=== PATIENT | female | born 1960 | race Asian ===

== ENCOUNTER 2020-12-10 17:16 | Inpatient (IN) | payer BC, SELFPAY ==
[~2020-12-10] VITALS: Ht 154.9 cm; Wt 68.5 kg
--- NOTE | 2020-12-10 17:16 | NUR ---
Placed in room 01 . Placed on cardiac tech, blood pressure machine and pulse oximeter. To gown for exam. Side rails up.
--- NOTE | 2020-12-10 17:17 | NUR ---
Patient BIB from by [facility] [employer] for possible overdose. Per Paramedics, 911 was call to home for wellness check. No response at front door Police force entry to find patient laying on floor with empty bottle of lisinopril and ativan at side. Patient only responded to painful stimuli. Patient arrived with 20 G to left hand and MAMMOGRAPHY TECHNICIAN in right nostril ciaran NRB at 15L. Patient given Epinephrine x 1 for blood pressure of 86/60 and narcan x1 with no effect. Patient is non verbal, GCS 3. MD notified. Prepared for intubation.
--- NOTE | 2020-12-10 17:23 | NUR ---
called [phone] for nephew, Venu Cooper. Spoke to nimichael Contreras reports ativan 0.5 mg q daily prn for anxiety refilled on 12/08/20 Quantity 30 is empty
[2020-12-10] MEDS ORDERED: NOREPINEPHRINE 4 MG/4 ML VIAL IV ONE (17:31)
--- NOTE | 2020-12-10 17:31 | NUR ---
Patient not known to be of DNR status. Patient medicated with 50 mg of Rocuronium for sedation prior to placement of ET tube. Respiratory therapy at bedside prior to placement. Size 7.5 ET tube placed by DR. Billy Cuff inflated with 10 cc air. Auscultation of breath sounds over bilateral chest wall. ET tube secured with holster. O2 sats 100 pulse ox. PCXR ordered to check tube placement.
--- NOTE | 2020-12-10 17:35 | NUR ---
# 16 FR NG tube placed to right nare. Placement checked by auscultation of instilled air into stomach and aspiration of gastric contents. Tubing taped in place to prevent dislodging. Patient tolerated well
--- NOTE | 2020-12-10 17:40 | NUR ---
# 16 FR Campbell catheter with use of sterile technique. Immediate return of 200 cc clear urine noted. Bedside drainage bag placed below level of bladder. Urine sample collected and sent to lab. Pt tolerated procedure well
--- NOTE | 2020-12-10 17:48 | NUR ---
Called Poison Control at [phone] and spoke with MIGUEL. Per recommendations: MAY CAUSE RESPIRATORY DEPRESSION, HYPOTENSION MAY CAUSE QTC PROLONGATION IF GREATER THAN 500 -AUTOMOBILE SALESMAN -EKG -CHECK ELECTROLYTES -SALICYLATES -UDS -ACETAMINOPHEN Dr. PRICE notified. Will continue to monitor patient.
--- NOTE | 2020-12-10 17:53 | NUR ---
EKG performed at BS by ELIAN Salamanca. Physician given copy of EKG for review.
[2020-12-10 17:56] VITALS: BP_SYST 105
[2020-12-10] MEDS ORDERED: ROCURONIUM BROMIDE 10 MG/ML (ZEMURON) ONE (18:00)
[2020-12-10] MEDS ORDERED: MIDAZOLAM IN NACL,ISO-OSMOT/PF 100 ML IV PRN (18:00)
[2020-12-10] MEDS ORDERED: NOREPINEPHRINE BITARTRATE 4 MG in NS 246 ML IV ONE ×2 (18:00→18:15)
[2020-12-10] MEDS ORDERED: ACTIVATED CHARCOAL 50 GM ORAL.SUSP PO ONE (18:00)
--- NOTE | 2020-12-10 18:00 | NUR ---
unable to do Suicide Severity Risk Assessment. Unable to ask patient questions at this time. Per family, Patient has never had any Suicide attempts in the past. History of depression on Latuda 20 mg for 3 months and recently started prozac 3 weeks ago. Family reports no triggers but reports loss of father in law 1 1/2 months ago.
--- NOTE | 2020-12-10 18:03 | NUR ---
levophed 0.1 mg initated at this time BP 96/63 hr 89 to Titrate to a goal MAP of 90.
[2020-12-10 18:15] LABS: BASOPHILS % (AUTO) 0.2 % (0.0-2.0); EOSINOPHILS % (AUTO) 0.3 % (0.0-4.0); HEMATOCRIT 33.5 % (36-48); HEMOGLOBIN 11.2 g/dL (12.0-16.0); LYMPHOCYTES # (AUTO) 1.6 K/uL (1.0-5.5); LYMPHOCYTES % (AUTO) 16.5 % (20.5-51.5); MEAN CORPUSCULAR HEMOGLOBIN 30 pg (27-31); MEAN CORPUSCULAR HGB CONC 34 % (32-36); MEAN CORPUSCULAR VOLUME 90 fL (79.0-98.0); MONOCYTES # (AUTO) 0.4 K/uL (0.0-1.0); MONOCYTES % (AUTO) 4.4 % (1.7-9.3); NEUTROPHILS # (AUTO) 7.8 K/uL (1.8-7.7); NEUTROPHILS % (AUTO) 78.6 % (40.0-70.0); PLATELET COUNT (AUTO) 219 K/uL (130-430); RED BLOOD CELL COUNT(AUTO) 3.72 MIL/uL (4.2-6.2); RED CELL DISTRIBUTION WIDTH 13.6 % (9.0-15.0)
[2020-12-10 18:28] LABS: BILIRUBIN,URINE NEGATIVE (NEGATIVE); BLOOD, URINE 1+ (NEGATIVE); CLARITY/URINE CLEAR (CLEAR); COLOR,URINE YELLOW (YELLOW); GLUCOSE,URINE NEGATIVE (NEGATIVE); KETONES,URINE TRACE (NEGATIVE); LEUKOCYTE ESTERASE ,URINE NEGATIVE (NEGATIVE); NITRITE, URINE NEGATIVE (NEGATIVE); PROTEIN URINE NEGATIVE (NEGATIVE); UROBILINOGEN,URINE 0.2 (0.2-1.0)
--- NOTE | 2020-12-10 18:46 | NUR ---
Versed drip started at 1 mg/hr Titrate to Rass of -3.
--- NOTE | 2020-12-10 18:53 | NUR ---
aPatient will be admitted to care of Dr. Pak. Admitted to ICU unit. ICU hold at this time. Belongings list completed. Complete and up to date summary report printed. SBAR report to be given at bedside with opportunity for questions.
[2020-12-10 18:54] LABS: BARBITURATE, URINE NEGATIVE (NEG <=200); BENZODIAZEPINE, URINE POSITIVE (NEG <=150); CANNABINOID, URINE NEGATIVE (NEG <=50); COCAINE, URINE NEGATIVE (NEG <=150); METHAMPHETAMINES SCREEN,URINE NEGATIVE (NEG <=500); OPIATE, URINE NEGATIVE (NEG <=100); PHENCYCLIDINE SCREEN,URINE NEGATIVE (NEG <=25); UR TRICYCLIC ANTIDEPRESSANTS NEGATIVE (NEG <=300); URINE AMPHETAMINE NEGATIVE (NEG <=500); URINE METHADONE NEGATIVE (NEG <=200); URINE OXYCODONE SCREEN NEGATIVE (NEG <=100); URINE PROPOXYPHENE SCREEN NEGATIVE (NEG <=300)
[2020-12-10] MEDS ORDERED: ROCURONIUM BROMIDE 10 MG/ML (ZEMURON) IVP ONE (19:00)
[2020-12-10] MEDS ORDERED: NACL 0.9% 1,000 ML IV ONE (19:00)
[2020-12-10] MEDS ORDERED: ATOR10TA68 PO (19:11)
[2020-12-10] MEDS ORDERED: PRO10 PO (19:11)
[2020-12-10] MEDS ORDERED: ONDANSETRON HCL 4 MG/2 ML VIAL IVP ONE (19:15)
[2020-12-10] MEDS ORDERED: ESCI20TA PO (19:15)
[2020-12-10] MEDS ORDERED: fentaNYL CITRATE/PF 100 MCG/2 ML AMP IVP ONE ×3 (19:15→20:30)
[2020-12-10] MEDS ORDERED: LORA-258 PO (19:16)
--- NOTE | 2020-12-10 19:20 | NUR ---
Patient awake and attempting to pull at tube. Patient had one episode of emesis and suctioned at be 50 ml of activated charcoal. order for zofran 4 mg ivp received and given. Versed Titrated to 5 mg/hr per md.
[2020-12-10 19:21] LABS: ALANINE AMINOTRANSFERASE 47 U/L (12-78); ALBUMIN 3.7 g/dL (3.4-4.8); ALCOHOL, BLOOD 16 mg/dL (<10); ASPARTATE AMINOTRANSFERASE 34 U/L (10-37); CALCIUM 7.8 mg/dL (8.4-11.0); CHLORIDE 103 mmol/L (98-107); CREATININE 0.72 mg/dL (0.55-1.30); GLUCOSE 132 mg/dL (70-99); SODIUM SERUM 142 mmol/L (136-145); TOTAL BILIRUBIN 0.8 mg/dL (0.0-1.0); UREA NITROGEN, BLOOD 9 mg/dL (8-21)
--- NOTE | 2020-12-10 19:24 | NUR ---
Patient eyes are open and trying to grab at tube. MD notified. Md ordered placed in CPOE. Fentanyl 100 mcg given ivp given
[2020-12-10 19:31] LABS: GFR AFRICAN AMERICAN 106 mL/min (>90)
[2020-12-10 19:32] LABS: POTASSIUM 2.7 mmol/L (3.5-5.1)
[2020-12-10 19:33] LABS: ACETAMINOPHEN < 1 ug/mL (1-30); ANION GAP 15 (5-15)
--- NOTE | 2020-12-10 19:36 | NUR ---
EKG performed at BS by ELIAN Salamanca. Physician given copy of EKG for review.
[2020-12-10] MEDS ORDERED: DEXMEDETOMIDINE HCL 200 MCG in NS 48 ML IV PRN (19:45)
--- NOTE | 2020-12-10 19:49 | NUR ---
Patient is restless and moving hands and moving head side to side. MD order additional Fentanyl 100 mcg ordered and given.
--- NOTE | 2020-12-10 19:50 | NUR ---
Versed titrated to 10 mg/hr per MD order. Will continue to monitor patient.
[2020-12-10] MEDS ORDERED: CIT IV PRN (20:00)
[2020-12-10] MEDS ORDERED: ONDANSETRON HCL 4 MG/2 ML VIAL IVP PRN (20:00)
[2020-12-10] MEDS ORDERED: D5/0.45 NS 1,000 ML IV SCH (20:00)
[2020-12-10] MEDS ORDERED: FENTANYL IV PRN (20:00)
[2020-12-10] MEDS ORDERED: NS IV PRN (20:00)
--- NOTE | 2020-12-10 20:07 | NUR ---
Dr. Billy speaking to Dr. Pino regarding sedation orders for patient
[2020-12-10] MEDS ORDERED: LURA20TA PO (20:19)
[2020-12-10 20:21] LABS: BACTERIA,URINE FEW /HPF (None Seen); MUCUS,URINE None Seen /LPF (None Seen); RBC,URINE 0-3 /HPF (0-3); WBC,URINE 0-3 /HPF (0-3)
--- NOTE | 2020-12-10 20:22 | NUR ---
titrated Levophed 0.39 mcg/min BP 110/71
--- NOTE | 2020-12-10 21:00 | NUR ---
Medication reconciliation completed with information provided by patient's medication bottles. Any prior medication reconciliation on file was reviewed and corrected.
--- NOTE | 2020-12-10 21:20 | NUR ---
at bedside states she is full code.
--- NOTE | 2020-12-10 22:06 | NUR ---
Doron from poison control updated on patient status. Recommended replacing potassium and giving Magnesium 2 gm for prolonged QTC. Md notified
[2020-12-10] MEDS ORDERED: MAGNESIUM SULFATE 50 ML IV ONE ×2 (22:15→22:28)
[2020-12-10] MEDS ORDERED: KCL 40 mEq in 100 mL (PREMIX) 40 MEQ, LIDOCAINE JECT 2% PF 100 MG 75 MG in NS 150 ML IV ONE (22:15)
[2020-12-10] MEDS ORDERED: KCL 20 mEq in 100 mL (PREMIX) 200 ML IV ONE (22:26)
[2020-12-10] MEDS ORDERED: KCL 20 mEq in 100 mL (PREMIX) 100 ML IV ONE (22:30)
--- NOTE | 2020-12-10 22:30 | NUR ---
# 20 gauge angiocath placed to RIGHT hand. Use of asceptic technique. Opsite placed over site. Blood return noted. Flushed with 10 cc of normal saline. No evidence of infiltration noted. Patient tolerated well.
--- NOTE | 2020-12-10 22:30 | NUR ---
# 20 gauge angiocath placed to RIGHT WRIST. Use of asceptic technique. Opsite placed over site. Blood return noted. Flushed with 10 cc of normal saline. No evidence of infiltration noted. Patient tolerated well.
[2020-12-10] MEDS: ASPIRIN 600 MG/SUPP.RECT RC SCH (23:01)
--- NOTE | 2020-12-10 23:33 | NUR ---
Patient resting quietly. No acute distress noted. Vital signs within normal range.
[2020-12-11] VITALS (22 sets, daily range): BP systolic 105–143
[2020-12-11] MEDS ORDERED: PIPERACILLIN/TAZOBACTAM 3.375 GM/VIAL (ZOSYN) IV ONE (00:07)
--- NOTE | 2020-12-11 00:33 | NUR ---
Patient resting quietly. No acute distress noted. Vital signs within normal range.
[2020-12-11] MEDS: PIPERACILLIN/TAZO 3.375/DEX-IS 50 ML IV SCH ×5 (00:47→18:41)
[2020-12-11] MEDS ORDERED: fentaNYL CITRATE/PF 100 MCG/2 ML AMP IVP ONE (01:00)
--- NOTE | 2020-12-11 01:08 | NUR ---
Levophed Maxed at 1ml/hr.
--- NOTE | 2020-12-11 01:39 | NUR ---
emptied 1200 ml of clear yellow urine from urine collection bag.
[2020-12-11] MEDS ORDERED: NACL 0.9% 1,000 ML IV ONE (01:45)
[2020-12-11] MEDS: NACL 0.9% 1,000 ML IV SCH ×7 (02:16→21:36)
[2020-12-11] MEDS ORDERED: NOREPINEPHRINE BITARTRATE 4 MG in D5W 246 ML IV PRN (03:30)
[2020-12-11] MEDS ORDERED: MIDAZOLAM IN NACL,ISO-OSMOT/PF 100 ML IV SCH ×2 (03:30→12:15)
[2020-12-11] MEDS ORDERED: MIDAZOLAM IN NACL,ISO-OSMOT/PF 100 ML IV ONE ×2 (03:37→12:14)
[2020-12-11] MEDS ORDERED: fentaNYL CITRATE/PF 100 MCG/2 ML AMP ONE (03:50)
--- NOTE | 2020-12-11 04:08 | NUR ---
Patient transported to radiology via gurney, accompanied by RN, Tech, and Respiratory therapist.
--- NOTE | 2020-12-11 04:34 | NUR ---
Returned from radiology. Patient placed in ICU hospital bed/rney. Linens clean and changed. Patient IV medications infusing at prescribed rate. No signs of infiltration. Patient VSS, breathing even and unlabored, no signs of acute distress noted. Respiratory placed patient on ventilator. O2 saturation at 99%. Patient placed on quality assurance monitor body. Will continue to monitor.
--- NOTE | 2020-12-11 04:36 | NUR ---
Mepilex placed on patients saccral area, skin is intact. Pillow placed underneath heels to relieve pressure off bony prominences, skin is intact. Campbell catheter placed below patients bladder.
--- NOTE | 2020-12-11 04:42 | NUR ---
Campbell Catheter bag emptied, total urine output 500mL of clear yellow urine.
[2020-12-11 05:05] LABS: BASOPHILS % (AUTO) 0.2 % (0.0-2.0); EOSINOPHILS % (AUTO) 0.3 % (0.0-4.0); HEMATOCRIT 32.2 % (36-48); HEMOGLOBIN 10.7 g/dL (12.0-16.0); LYMPHOCYTES # (AUTO) 2.1 K/uL (1.0-5.5); LYMPHOCYTES % (AUTO) 17.3 % (20.5-51.5); MEAN CORPUSCULAR HEMOGLOBIN 30 pg (27-31); MEAN CORPUSCULAR HGB CONC 33 % (32-36); MEAN CORPUSCULAR VOLUME 91 fL (79.0-98.0); MONOCYTES # (AUTO) 0.8 K/uL (0.0-1.0); MONOCYTES % (AUTO) 6.2 % (1.7-9.3); NEUTROPHILS # (AUTO) 9.2 K/uL (1.8-7.7); PLATELET COUNT (AUTO) 209 K/uL (130-430); RED BLOOD CELL COUNT(AUTO) 3.55 MIL/uL (4.2-6.2); RED CELL DISTRIBUTION WIDTH 13.5 % (9.0-15.0); WHITE BLOOD COUNT (AUTO) 12.1 K/uL (4.8-10.8)
[2020-12-11 05:21] LABS: CALCIUM 7.4 mg/dL (8.4-11.0); CREATININE 0.73 mg/dL (0.55-1.30); PHOSPHORUS 2.7 mg/dL (2.7-4.5)
--- NOTE | 2020-12-11 05:36 | NUR ---
Transfer to ICU via ACLS protocol. Licensed nurse and respiratory therapist present. IV present no signs or symptoms of infiltration.
--- NOTE | 2020-12-11 05:55 | NUR ---
Pt admitted to ICU bed 5. Transferred by RN and RT in bed following ACLS protocol. Pt intubated and on ventilator. NG tube in place and clamped. Levophed gtt infusing @ 0.72 mcg/hr, Versed gtt infusing @ 10 mg/hr. Campbell catheter in place and draining to gravity. Bedside report given by GEOSCIENCES ASSOCIATE PROFESSOR.
--- NOTE | 2020-12-11 06:34 | NUR ---
CONSULT CARDIO. CONSULTING MD: DR. Court ADKINS PERSON NOTIFIED: LAI DIALED: [phone] ORDERED BY: DR. Sterling ADKINS
--- NOTE | 2020-12-11 06:35 | NUR ---
CONSULT PSYCH. CONSULTING MD: DR. ADAIR PERSON NOTIFIED: STEPHEN DIALED: [phone] ORDERED BY: DR. Sterling ADKINS
--- NOTE | 2020-12-11 07:30 | NUR ---
CLOSING NOTE Endorsed SBAR report to oncoming RN for continuity of care.
[2020-12-11] MEDS: PANTOPRAZOLE SODIUM 40 MG/VIAL (PROTONIX) IVP SCH (07:57)
--- NOTE | 2020-12-11 08:00 | NUR ---
Levophed infusing at 0.72mcg/kg/min on pump and SBP 120s.Levophed infusing on a regular pump and changed to ICU pump.rate decreased to 0.12mcg/kg/min. will watch BP and make further adjustments as needed.
--- NOTE | 2020-12-11 08:28 | NUR ---
BP 122/75 HR 56 Levophed decreased to 0.3mcg/kg/min. will monitor
[2020-12-11] MEDS: ASPIRIN 600 MG/SUPP.RECT RC SCH (08:49)
--- NOTE | 2020-12-11 09:15 | NUR ---
BP 129/73 HR 60 levo off
--- NOTE | 2020-12-11 09:30 | NUR ---
talked to patient (Alex) on the phone.
--- NOTE | 2020-12-11 10:30 | NUR ---
started tube feeding Vital AF 1.2 @ 10cc
[2020-12-11] MEDS ORDERED: CALCIUM GLUCONATE 2 GM in NS 100 ML IV ONE (11:45)
[2020-12-11] MEDS ORDERED: MAGNESIUM SULFATE 50 ML IV ONE (11:45)
--- NOTE | 2020-12-11 12:32 | NUR ---
calcium gluconate barcode is not scanning. informed pharmacist ( kurt) stated will working on it.
--- NOTE | 2020-12-11 13:05 | NUR ---
talked to family on the phone
--- NOTE | 2020-12-11 14:02 | NUR ---
CONSULT ID CONSULTING MD: DR. HEADLEY PERSON NOTIFIED: STEPHEN DIALED: [phone] ORDERED BY: Sterling TY
[2020-12-11] MEDS ORDERED: DEXMEDETOMIDINE HCL 400 MCG in NS 96 ML IV PRN ×2 (17:45→18:00)
--- NOTE | 2020-12-11 18:28 | NUR ---
1800 CPAP 5 PS 10 .30 TRIAL. RN AWARE. Addendum: 12/11/20 at 1829 by Harmony Elizalde RT Amended: Links added.
--- NOTE | 2020-12-11 19:49 | NUR ---
ENDORSED PATIENT TO KITCHEN LEAD RN FOR CONTINUATION OF CARE.
--- NOTE | 2020-12-11 19:50 | NUR ---
ABG ABG results relayed to Dr Donaldson. Orders received. Have RT start weaning from vent.
--- NOTE | 2020-12-11 20:00 | NUR ---
ASSESSMENT Pt quite with eyes close. Pt orally intubated, CPAP settings, pt tolerating current vent settings. NGT present left nare with continuous feeding in progress. NGT placement checked by irrigating tube and auscultating placement. IV sites 20ga LAC, 20ga RAC, 20ga right wrist, 20ga right hand all patent no redness or swelling noted @ site. @ bedside.
--- NOTE | 2020-12-11 20:55 | NUR ---
DR JACKIE Donaldson called to receive an update on pt's condition on CPAP. Orders received to extubate and place pt on 2L NC.
--- NOTE | 2020-12-11 21:05 | NUR ---
PRECEDEX Precedex discontinued, pt now extubated.
--- NOTE | 2020-12-11 22:32 | NUR ---
PT EXTUBATED PLACED ON 2L N/C O2 SAT REMAINS AT 96 %
[2020-12-12] VITALS (10 sets, daily range): BP systolic 106–140
[2020-12-12] MEDS: PIPERACILLIN/TAZO 3.375/DEX-IS 50 ML IV SCH ×5 (00:17→23:37)
[2020-12-12] MEDS: NACL 0.9% 1,000 ML IV SCH ×2 (06:26→23:38)
--- NOTE | 2020-12-12 06:35 | NUR ---
Nutrition Update Jack Scale 14 noted. Pt admitted for Respiratory failure, Shock Diet: Vital AF 1.2 at 10cc, FWF 50cc Q4H via NGT BMI: 28.6 kg/m2 RD to follow per nutrition care standards.
[2020-12-12 06:42] LABS: BASOPHILS % (AUTO) 0.2 % (0.0-2.0); EOSINOPHILS # (AUTO) 0.1 K/uL (0.0-0.4); EOSINOPHILS % (AUTO) 1.4 % (0.0-4.0); HEMATOCRIT 31.7 % (36-48); HEMOGLOBIN 10.8 g/dL (12.0-16.0); LYMPHOCYTES # (AUTO) 1.8 K/uL (1.0-5.5); LYMPHOCYTES % (AUTO) 21.4 % (20.5-51.5); MEAN CORPUSCULAR HEMOGLOBIN 31 pg (27-31); MEAN CORPUSCULAR HGB CONC 34 % (32-36); MEAN CORPUSCULAR VOLUME 89 fL (79.0-98.0); MONOCYTES # (AUTO) 0.5 K/uL (0.0-1.0); MONOCYTES % (AUTO) 6.3 % (1.7-9.3); NEUTROPHILS % (AUTO) 70.7 % (40.0-70.0); PLATELET COUNT (AUTO) 200 K/uL (130-430); RED BLOOD CELL COUNT(AUTO) 3.54 MIL/uL (4.2-6.2); RED CELL DISTRIBUTION WIDTH 13.6 % (9.0-15.0); WHITE BLOOD COUNT (AUTO) 8.4 K/uL (4.8-10.8)
[2020-12-12 07:49] LABS: ALBUMIN 3.3 g/dL (3.4-4.8); CALCIUM 8.2 mg/dL (8.4-11.0); CREATININE 0.73 mg/dL (0.55-1.30); POTASSIUM 3.5 mmol/L (3.5-5.1); TOTAL BILIRUBIN 1.2 mg/dL (0.0-1.0)
--- NOTE | 2020-12-12 08:00 | NUR ---
[place]-SUICIDE SEVERITY RATING SCALE Pt denies harming self, and states "I don't know".
[2020-12-12 08:23] LABS: ERYTHROCYTE SEDIMENTATION RATE 31 MM/HR (0-20)
[2020-12-12] MEDS: PANTOPRAZOLE SODIUM 40 MG/VIAL (PROTONIX) IVP SCH (08:29)
[2020-12-12] MEDS: ASPIRIN 600 MG/SUPP.RECT RC SCH (08:46)
[2020-12-12 09:26] LABS: C-REACTIVE PROTEIN QUANT 3.9 mg/dL (0-0.5)
--- NOTE | 2020-12-12 09:32 | NUR ---
DR ADKINS OK to transfer to Telemetry per doctor Adkins.
--- NOTE | 2020-12-12 09:43 | NUR ---
Dietitian Recommendations *Recommend: swallow eval for diet advancement. *If pt will be kept on EN, RD rec to increase EN infusion rate to better meet estimated needs: Vital AF 1.2 at 55ml/hr (goal rate). Please see Nutritional Assessment for details. CUSTODIAL, RD
--- NOTE | 2020-12-12 10:45 | NUR ---
DR JACKIE Donaldson evaluating pt.
--- NOTE | 2020-12-12 10:53 | NUR ---
PAGED PAGED LUCAS FOR SWALLOW EVAL LEFT MESSAGE
--- NOTE | 2020-12-12 11:00 | NUR ---
POISON CONTROL Jennie from poison control inquiring about pt. Wanted up date on pts condition.
--- NOTE | 2020-12-12 11:05 | NUR ---
TRANSFER PT transferred to Telemetry 131 via bed. Transported with ACLS RNs. Report given to Danni PAZ. Pt transported with O2 @ 2L NC. Belongings with pt.
--- NOTE | 2020-12-12 11:15 | NUR ---
Transfer to [facility] Patient transferred to Tele. Patient in stable condition. On 2 L nasal canula and tolerating well with no signs of shortness of breath noted. Vital signs are stable. 4 IV sites, patent infusing fluids as ordered. Bed locked and in lowest position. Call light within reach. Direct observation, sitter at bedside. Will monitor.
[2020-12-12] MEDS: IPRATROPIUM/ALBUTEROL SULFATE 3 ML AMPUL.NEB (DUONEB) INH SCH ×2 (13:35→20:21)
--- NOTE | 2020-12-12 13:42 | NUR ---
Dr. Pak rounds Spoke with Dr. Pak on the floor. Ordered regular diet and remove NG tube. Noted and carried out.
--- NOTE | 2020-12-12 14:06 | NUR ---
REMOVED NG/ PT Removed NG tube. Physical therapy at bedside. Will monitor.
--- NOTE | 2020-12-12 15:25 | NUR ---
S.T. SWALLOW EVAL SWALLOW EVAL COMPLETED. PT PRESENTS W/ FUNCTIONAL OROPHARYNGEAL SWALLOW W/ NO S/S OF ASPIRATION. PT PREFERS SOFT FOODS. REC: MECH SOFT FINELY CHOPPED DIET. THIN LIQUIDS OK. NURSE SABRA NOTIFIED.
--- NOTE | 2020-12-12 17:34 | NUR ---
Temperature Patient's temperature 99.4F. Cooling measures applied. Will monitor. Addendum: 12/12/20 at 1752 by Ayaka Ortega RN Temperature now at 97.5 after cooling measures. Will monitor.
--- NOTE | 2020-12-12 18:39 | NUR ---
CLOSING NOTE Patient is alert and oriented x 3. On room air and tolerating well with no signs of shortness of breath noted. 3 IV sites, infusing fluids at 125 ml/hr. Other IV sites are patent, saline locked. Bed locked and in lowest position. Sitter present. Call light within reach. Will endorse to night nurse.
--- NOTE | 2020-12-12 19:45 | NUR ---
OPENING NOTES PATIENT AWAKE IN BED. BREATHING UNLABORED ON ROOM AIR. NO C/O PAIN. IVF INFUSING ORDERED. SITTER ASSISTED PATIENT WITH ORAL CARE. VISITING.
--- NOTE | 2020-12-12 21:30 | NUR ---
ROUNDS PATIENT RESTING IN BED. VITAL SIGNS STABLE. SITTER AT BEDSIDE.
--- NOTE | 2020-12-12 23:37 | NUR ---
ATB PATIENT DUE ANTIBIOTIC INFUSING. IV LINE INTACT AND PATENT.
--- NOTE | 2020-12-13 | NUR ---
02 SAT/MD ROUND PATIENT 02 SAT SUSTAINING 87-[address] Macho HEADLEY MAKING ROUNDS MADE AWARE. PATIENT 02 CHANGED TO OXYMIZER 5L NC. 02 SAT WENT UP TO 99%.
[2020-12-13] MEDS: IPRATROPIUM/ALBUTEROL SULFATE 3 ML AMPUL.NEB (DUONEB) INH SCH ×4 (01:09→19:40)
--- NOTE | 2020-12-13 02:27 | NUR ---
02 02 SAT SUSTAINING 97-99%. OXYMIZER DOWN TO 2L.
--- NOTE | 2020-12-13 04:28 | NUR ---
ROUNDS PATIENT RESTING IN BED. NO DISTRESS NOTED. IVF INFUSING. 02 SAT 97%. SITTER AT BEDSIDE.
[2020-12-13] MEDS: PIPERACILLIN/TAZO 3.375/DEX-IS 50 ML IV SCH ×4 (05:13→23:37)
[2020-12-13 05:14] VITALS: BP_SYST 138
--- NOTE | 2020-12-13 05:18 | NUR ---
ATB PATIENT DUE ANTIBIOTIC INFUSING. NO C/O PAIN. VITAL SIGNS STABLE.
[2020-12-13 06:23] LABS: CALCIUM 8.4 mg/dL (8.4-11.0); CREATININE 0.77 mg/dL (0.55-1.30); POTASSIUM 3.2 mmol/L (3.5-5.1)
[2020-12-13 06:28] LABS: BASOPHILS % (AUTO) 0.2 % (0.0-2.0); EOSINOPHILS # (AUTO) 0.2 K/uL (0.0-0.4); EOSINOPHILS % (AUTO) 2.5 % (0.0-4.0); HEMATOCRIT 29.8 % (36-48); HEMOGLOBIN 10.3 g/dL (12.0-16.0); LYMPHOCYTES # (AUTO) 2.5 K/uL (1.0-5.5); LYMPHOCYTES % (AUTO) 31.4 % (20.5-51.5); MEAN CORPUSCULAR HEMOGLOBIN 31 pg (27-31); MEAN CORPUSCULAR HGB CONC 35 % (32-36); MEAN CORPUSCULAR VOLUME 89 fL (79.0-98.0); MONOCYTES # (AUTO) 0.6 K/uL (0.0-1.0); MONOCYTES % (AUTO) 7.7 % (1.7-9.3); NEUTROPHILS # (AUTO) 4.6 K/uL (1.8-7.7); NEUTROPHILS % (AUTO) 58.2 % (40.0-70.0); PLATELET COUNT (AUTO) 192 K/uL (130-430); RED BLOOD CELL COUNT(AUTO) 3.35 MIL/uL (4.2-6.2); RED CELL DISTRIBUTION WIDTH 13.4 % (9.0-15.0)
--- NOTE | 2020-12-13 06:33 | NUR ---
CLOSING NOTES PATIENT NEEDS ATTENDED. IVF INFUSING WITH IV LINE INTACT AND PATENT. SITTER AT BEDSIDE.
--- NOTE | 2020-12-13 07:29 | NUR ---
OPENING NOTE Patient is alert and oriented x 3. On 2 L oximizer and tolerating well with no signs of shortness of breath noted. 3 IV sites, infusing fluids at 125 ml/hr. Other IV sites are patent, saline locked. Bed locked and in lowest position. Sitter present. Call light within reach. Will continue to monitor.
[2020-12-13 07:30] LABS: C-REACTIVE PROTEIN QUANT 6.3 mg/dL (0-0.5)
[2020-12-13 08:00] VITALS: BP_SYST 139
[2020-12-13] MEDS: NACL 0.9% 1,000 ML IV SCH ×2 (08:16→15:33)
[2020-12-13] MEDS: PANTOPRAZOLE SODIUM 40 MG/VIAL (PROTONIX) IVP SCH (08:17)
[2020-12-13] MEDS: ASPIRIN 600 MG/SUPP.RECT RC SCH (08:17)
[2020-12-13 09:43] LABS: ERYTHROCYTE SEDIMENTATION RATE 41 MM/HR (0-20)
[2020-12-13 11:05] VITALS: BP_SYST 119
--- NOTE | 2020-12-13 11:50 | NUR ---
RN Note Patient is resting in bed. Calm, with no distress noted. Patient denies any thoughts of harming herself, but stated she feels anxious. Sitter at bedside. Will monitor.
[2020-12-13 16:00] VITALS: BP_SYST 132
--- NOTE | 2020-12-13 18:36 | NUR ---
CLOSING NOTE Patient is alert and oriented x 3. On 2 L oximizer and tolerating well with no signs of shortness of breath noted. 3 IV sites, infusing fluids at 125 ml/hr. Other IV sites are patent, saline locked. Bed locked and in lowest position. Sitter present. Call light within reach. Will endorse to night nurse.
[2020-12-13] MEDS ORDERED: POTASSIUM CHLORIDE 20 MEQ TAB.PRT.SR PO ONE (19:30)
[2020-12-13 20:00] VITALS: BP_SYST 134
[2020-12-13] MEDS: NORMAL SALINE 5 ML DISP.SYRIN IVF SCH (21:10)
--- NOTE | 2020-12-13 22:00 | NUR ---
ROUNDING NOTES Patient resting in bed - no s/s pain or distress noted. IV sites patent - no s/s redness, infection, or infiltration. Campbell catheter secure and draining by gravity. Bed locked and in lowest position. Call light within reach.
[2020-12-13] MEDS: LORazepam 2 MG/ML VIAL IVP PRN (22:43)
[2020-12-14] VITALS: BP_SYST 133
[2020-12-14] MEDS: IPRATROPIUM/ALBUTEROL SULFATE 3 ML AMPUL.NEB (DUONEB) INH SCH ×4 (00:53→19:41)
[2020-12-14] MEDS: PIPERACILLIN/TAZO 3.375/DEX-IS 50 ML IV SCH ×4 (05:29→23:24)
[2020-12-14] MEDS: NORMAL SALINE 5 ML DISP.SYRIN IVF SCH ×3 (05:29→22:00)
--- NOTE | 2020-12-14 06:10 | NUR ---
PATIENT FEVER - DR. ADKINS CALLED Patient temperature 100.1 - Dr. Adkins called - orders Tylenol 650 PO Q4H PRN.
[2020-12-14] MEDS ORDERED: ACETAMINOPHEN 325 MG TABLET PO PRN (06:30)
[2020-12-14 06:38] LABS: BASOPHILS % (AUTO) 0.2 % (0.0-2.0); EOSINOPHILS # (AUTO) 0.2 K/uL (0.0-0.4); EOSINOPHILS % (AUTO) 2.5 % (0.0-4.0); HEMATOCRIT 31.5 % (36-48); HEMOGLOBIN 10.7 g/dL (12.0-16.0); LYMPHOCYTES # (AUTO) 2.2 K/uL (1.0-5.5); LYMPHOCYTES % (AUTO) 28.5 % (20.5-51.5); MEAN CORPUSCULAR HEMOGLOBIN 30 pg (27-31); MEAN CORPUSCULAR HGB CONC 34 % (32-36); MEAN CORPUSCULAR VOLUME 89 fL (79.0-98.0); MONOCYTES # (AUTO) 0.5 K/uL (0.0-1.0); MONOCYTES % (AUTO) 6.9 % (1.7-9.3); NEUTROPHILS # (AUTO) 4.7 K/uL (1.8-7.7); NEUTROPHILS % (AUTO) 61.9 % (40.0-70.0); PLATELET COUNT (AUTO) 192 K/uL (130-430); RED BLOOD CELL COUNT(AUTO) 3.52 MIL/uL (4.2-6.2); RED CELL DISTRIBUTION WIDTH 13.6 % (9.0-15.0); WHITE BLOOD COUNT (AUTO) 7.6 K/uL (4.8-10.8)
--- NOTE | 2020-12-14 06:58 | NUR ---
CLOSING NOTES/ PATIENT SHOWING NO SIGNS OF FEVER PER TEMPERATURE Patient resting in bed - no s/s pain or distress noted. IV sites patent - no s/s redness, infection, or infiltration. Campbell catheter secure and draining by gravity. Bed locked and in lowest position. Call light within reach. Patient temperature rechecked - patient temperature now 98.8 (previous temperature was checked 3 times as well and showed above 100.1 temperatures). Tylenol not administered.
[2020-12-14 07:25] LABS: ALBUMIN 3.1 g/dL (3.4-4.8); CALCIUM 8.4 mg/dL (8.4-11.0); CREATININE 0.68 mg/dL (0.55-1.30); PHOSPHORUS 3.7 mg/dL (2.7-4.5); POTASSIUM 3.4 mmol/L (3.5-5.1)
[2020-12-14 08:00] VITALS: BP_SYST 139
[2020-12-14] MEDS: ASPIRIN 600 MG/SUPP.RECT RC SCH ×2 (09:00→09:03)
[2020-12-14] MEDS: ASPIRIN 81 MG TAB.CHEW ONE ×2 (09:02→09:06)
[2020-12-14] MEDS: PANTOPRAZOLE SODIUM 40 MG/VIAL (PROTONIX) IVP SCH (09:03)
--- NOTE | 2020-12-14 09:47 | NUR ---
Patient verbalizing feeling of depression she doesn't know whats causing them,cannot sleep well at night , she is not sure what to do to her life.she cant remember what happen.
[2020-12-14 09:50] LABS: C-REACTIVE PROTEIN QUANT 3.4 mg/dL (0-0.5)
[2020-12-14 10:39] LABS: ERYTHROCYTE SEDIMENTATION RATE 39 MM/HR (0-20)
[2020-12-14 12:00] VITALS: BP_SYST 116
[2020-12-14 16:00] VITALS: BP_SYST 139
--- NOTE | 2020-12-14 18:55 | NUR ---
Note Pt was checked on q1' and PRN all shift for needs and care. Pt had sitter at bedside all shift. Pt has been stable. Pt was assessed and seen by Dr Oconnor at 1330. 5150 was signed at this time. Pt seems down and replies to questions slowly and with no expression. Pt did ambulate with PT in hallway with FWW - tolerated ambulation well. Call light within reach. No needs noted at this time.
[2020-12-14 19:28] VITALS: BP_SYST 140
[2020-12-14] MEDS ORDERED: POTASSIUM CHLORIDE 20 MEQ TAB.PRT.SR PO ONE (19:30)
--- NOTE | 2020-12-14 19:30 | NUR ---
CHANGE OF SHIFT; endorsed by day shift, pt. is 61/50, on direct observation , sitter at bedside. no acute distress.
--- NOTE | 2020-12-14 20:15 | NUR ---
NOTES: pt. awake, alert and oriented, verbally responsive, pt. verbalizing about her transferring to another facility, quite not happy about it, reassure that its not happening today and most likely over the weekend or even on thursday. VS checked by BILLING ASSISTANT. IV site on rt. arm ( 3 IV sites) tko infusing. west cath to osd. on fall risk precaution.
--- NOTE | 2020-12-14 22:00 | NUR ---
NOTES: pt. visiting and talked to him about the plan of care.
[2020-12-14] MEDS: LORazepam 2 MG/ML VIAL IVP PRN (23:25)
--- NOTE | 2020-12-15 | NUR ---
NOTES: pt. quite restless and anxious, was given IV Ativan as ordered and antibiotic infusing. VS rechecked. for close observation.
[2020-12-15 00:09] VITALS: BP_SYST 139
[2020-12-15] MEDS: IPRATROPIUM/ALBUTEROL SULFATE 3 ML AMPUL.NEB (DUONEB) INH SCH ×4 (00:49→19:05)
--- NOTE | 2020-12-15 02:00 | NUR ---
NOTES: pt. sleeping comfortably. IV tko. condition observed.
--- NOTE | 2020-12-15 04:20 | NUR ---
NOTES: pt. checked and sleeping, on direct observation.
[2020-12-15] MEDS: PIPERACILLIN/TAZO 3.375/DEX-IS 50 ML IV SCH ×2 (05:16→11:33)
[2020-12-15] MEDS: NORMAL SALINE 5 ML DISP.SYRIN IVF SCH ×5 (05:17→22:56)
--- NOTE | 2020-12-15 05:28 | NUR ---
NOTES: pt. awakened for am blood draw. due IV antibiotic given.
--- NOTE | 2020-12-15 06:23 | NUR ---
CLOSING NOTES; pt. went back to sleep,no distress. IV site patent. remain on direct observation, hold. west cath intact. risk for fall. sitter at bedside.
[2020-12-15 06:44] LABS: BASOPHILS % (AUTO) 0.4 % (0.0-2.0); EOSINOPHILS # (AUTO) 0.2 K/uL (0.0-0.4); EOSINOPHILS % (AUTO) 2.9 % (0.0-4.0); HEMATOCRIT 33.5 % (36-48); HEMOGLOBIN 11.1 g/dL (12.0-16.0); LYMPHOCYTES # (AUTO) 1.8 K/uL (1.0-5.5); LYMPHOCYTES % (AUTO) 25.9 % (20.5-51.5); MEAN CORPUSCULAR HEMOGLOBIN 30 pg (27-31); MEAN CORPUSCULAR HGB CONC 33 % (32-36); MEAN CORPUSCULAR VOLUME 89 fL (79.0-98.0); MONOCYTES # (AUTO) 0.4 K/uL (0.0-1.0); MONOCYTES % (AUTO) 5.9 % (1.7-9.3); NEUTROPHILS # (AUTO) 4.5 K/uL (1.8-7.7); NEUTROPHILS % (AUTO) 64.9 % (40.0-70.0); PLATELET COUNT (AUTO) 204 K/uL (130-430); RED BLOOD CELL COUNT(AUTO) 3.76 MIL/uL (4.2-6.2); RED CELL DISTRIBUTION WIDTH 13.8 % (9.0-15.0)
[2020-12-15 06:53] LABS: CALCIUM 8.8 mg/dL (8.4-11.0); CREATININE 0.71 mg/dL (0.55-1.30); POTASSIUM 3.8 mmol/L (3.5-5.1)
[2020-12-15 07:43] LABS: C-REACTIVE PROTEIN QUANT 1.9 mg/dL (0-0.5)
[2020-12-15 08:00] VITALS: BP_SYST 132
[2020-12-15] MEDS: PANTOPRAZOLE SODIUM 40 MG/VIAL (PROTONIX) IVP SCH (09:25)
[2020-12-15] MEDS: ASPIRIN 81 MG TAB.CHEW PO SCH (09:26)
[2020-12-15 10:22] LABS: ERYTHROCYTE SEDIMENTATION RATE 50 MM/HR (0-20)
[2020-12-15] MEDS ORDERED: levoFLOXacin 500 MG TABLET PO ONE (12:15)
[2020-12-15 12:19] VITALS: BP_SYST 118
--- NOTE | 2020-12-15 14:30 | NUR ---
Note Campbell catheter dc'd and pt ambulated to restroom to void
[2020-12-15 16:00] VITALS: BP_SYST 107
--- NOTE | 2020-12-15 16:20 | NUR ---
Note Pt's on the floor to pt's bedside to visit pt at this time. Pt stable. Pt ambulated with staff around the hallway about 5-6 times with FWW with steady gait. No needs noted. Pt has had a sitter at bedside all shift.
--- NOTE | 2020-12-15 17:50 | NUR ---
Dietitian Recommendations *Recommend mechanical soft, finely chopped diet. * Encourage increase PO intake. LP, RD Please refer to Nutrition F/U for details.
--- NOTE | 2020-12-15 17:50 | NUR ---
Nutrition F/U Admitting Diagnosis Respiratory failure, Shock Medical History Comment: Pt w/: Acute Respiratory failure S/P intubation, Ventilator dependent, Intentional drug overdose, Hypotension, Hyperlipidemia, Depression, Anemia, Hypokalemia, Hyperglycemia, Hypocalcemia, Elevated troponin level, Possible left lower lobe pneumonia, Sepsis per MD notes. PMH: Hyperlipidemia, Depression. SARS-CoV-2 Ag Rapid 12/10 Negative Subjective Information Per MD note: pt on 5150 hold; ok to be discharged to [facility] facility. Pt had swallow eval on 12/12: pt presents w/ functional oropharyngeal swallow w/ no s/s of aspiration; pt prefers soft foods; rec mech soft finely chopped diet, thin liquids ok. Pt was seen bedside by sports intern and RD reviewed findings. Sitter was present as pt is on 5150 hold. Pt is no longer on EN, diet advanced to mechanical soft 3 days ago on 12/12. Pt reports no N/V/D/C; had BM today 12/15 x 1; pt is able to feed herself; pt reports good appetite; does not like Ensure Enlive. Pt encouraged to continue to increase PO intake. Pt to be discharged today or tomorrow per pts sitter. Per EMR review: 71% PO intake x 7 meals on mechanical soft diet; active bowel sounds. Pertinent Medications protonix IV, Zofran, Ativan Inj Pertinent Labs Na 141WNL, K 3.8WNL, BG 108H, BUN 10WNL, Cre 0.73WNL. Height 51 Weight 151#/68.5kg (12/12--stable) Body Mass Index 28.53 kg/m2 %IBW 144 Star/Adjusted Body Weight 105#/ 48kg; Adj IBW: 116#/53kg Weight Status Overweight Usual Diet At Home regular diet per EMR Skin Integrity Comment: Jack scale: 19. no skin issues/edema documented. Current % PO Fair (50-74%) Estimated Energy Expenditure (kcals/day) 1971-1597 Kcal/day (30-35 kcal/kg Adj IBW for sepsis) Estimated Protein Required (g/day) 79-106gm/day (1.5-2gm/kg Adj IBW for sepsis) Estimated Fluid Required (l/day) 1.6-1.9 L/day (1ml/calorie for maintenance) Problem/Etiology/Signs/Symptoms Predicted suboptimal protein-calorie intake r/t pathophysiological factors AEB S/P extubation, EN support meets <25% of estimated calorie and protein needs. (*resolved) Altered nutrition related labs r/t medical condition AEB elevated BG, no history of DM. (*ongoing) Expected Outcomes/Goals Monitor appetite and PO intake w/ goal of pt meeting more than 75% of estimated nutritional needs, labs trending WNL, normal GI function, skin integrity/wt maintenance. Dietitian Recommendations *Recommend mechanical soft, finely chopped diet. * Encourage increase PO intake. Follow Up High Risk: F/U in 2-3 days
--- NOTE | 2020-12-15 18:55 | NUR ---
Note Pt has had sitter at bedside all shift. Pt was checked on q1' and PRN all shift for needs and care. Pt's bed in low position all shift. Pt has been using restroom to void all shift since Campbell catheter was dc'd. IV in RCA intact and patent. Call light within reach. No needs noted at this time.
--- NOTE | 2020-12-15 20:37 | NUR ---
Patient is awake alert D/O @ the bedside for SAFETY skin dry warm chest movement symmetrical 02 SAT 97 % on ROOM AIR assist as needed .
--- NOTE | 2020-12-15 20:38 | NUR ---
FAMILY of Patient is @ the bedside .
[2020-12-15 20:39] VITALS: BP_SYST 129
[2020-12-15] MEDS: LORazepam 2 MG/ML VIAL IVP PRN (22:57)
[2020-12-16 00:03] VITALS: BP_SYST 127
[2020-12-16] MEDS: IPRATROPIUM/ALBUTEROL SULFATE 3 ML AMPUL.NEB (DUONEB) INH SCH ×3 (01:00→13:00)
--- NOTE | 2020-12-16 02:39 | NUR ---
Lorazepam 1 mg IVP administer for anxiety & helpful .
--- NOTE | 2020-12-16 02:40 | NUR ---
Sitter D/O 2 THE Bedside patient Resting chest movement symmetrical also unlabored . Addendum: 12/16/20 at 0336 by Lion Lin RN @ the bedside , patient has D/O sitter for safety .
[2020-12-16] MEDS: NORMAL SALINE 5 ML DISP.SYRIN IVF SCH ×4 (06:00→15:21)
--- NOTE | 2020-12-16 06:30 | NUR ---
Patient Resting verbally Responsive D/O @ the bedside chest movement is symmetrical unlabored .
[2020-12-16 06:38] LABS: BASOPHILS % (AUTO) 0.3 % (0.0-2.0); EOSINOPHILS # (AUTO) 0.1 K/uL (0.0-0.4); EOSINOPHILS % (AUTO) 2.1 % (0.0-4.0); HEMATOCRIT 32.3 % (36-48); HEMOGLOBIN 11.1 g/dL (12.0-16.0); LYMPHOCYTES # (AUTO) 2.1 K/uL (1.0-5.5); LYMPHOCYTES % (AUTO) 29.9 % (20.5-51.5); MEAN CORPUSCULAR HEMOGLOBIN 30 pg (27-31); MEAN CORPUSCULAR HGB CONC 34 % (32-36); MEAN CORPUSCULAR VOLUME 88 fL (79.0-98.0); MONOCYTES # (AUTO) 0.5 K/uL (0.0-1.0); MONOCYTES % (AUTO) 7.2 % (1.7-9.3); NEUTROPHILS # (AUTO) 4.2 K/uL (1.8-7.7); NEUTROPHILS % (AUTO) 60.5 % (40.0-70.0); PLATELET COUNT (AUTO) 205 K/uL (130-430); RED BLOOD CELL COUNT(AUTO) 3.66 MIL/uL (4.2-6.2); RED CELL DISTRIBUTION WIDTH 13.6 % (9.0-15.0); WHITE BLOOD COUNT (AUTO) 6.9 K/uL (4.8-10.8)
[2020-12-16 06:40] LABS: C-REACTIVE PROTEIN QUANT 0.9 mg/dL (0-0.5); CALCIUM 8.8 mg/dL (8.4-11.0); CREATININE 0.68 mg/dL (0.55-1.30); POTASSIUM 3.4 mmol/L (3.5-5.1)
[2020-12-16 08:00] VITALS: BP_SYST 118
--- NOTE | 2020-12-16 08:00 | NUR ---
OPENING NOTES AWAKE, ALERT AND ORIENTED. NO SHORTNESS OF BREATH ON ROOM AIR. DENIES ANY PAIN. DENIES ANY THOUGHTS OF HARMING SELF OR OTHERS AT THIS TIME. IV ON RIGHT ARM INTACT. SAFETY CHECKS IN PLACE. SITTER AT BEDSIDE. WILL MONITOR.
[2020-12-16] MEDS: ASPIRIN 81 MG TAB.CHEW PO SCH (08:38)
[2020-12-16] MEDS: PANTOPRAZOLE SODIUM 40 MG/VIAL (PROTONIX) IVP SCH (08:39)
[2020-12-16] MEDS ORDERED: levoFLOXacin 500 MG TABLET PO SCH (10:00)
--- NOTE | 2020-12-16 10:00 | NUR ---
ROUNDS PATIENT IS WALKING FREQUENTLY USING A WALKER ACCOMPANIED BY SITTER. NO COMPLAINS AT THIS TIME.
[2020-12-16 10:30] LABS: ERYTHROCYTE SEDIMENTATION RATE 43 MM/HR (0-20)
[2020-12-16] MEDS ORDERED: LEVO500T89 PO (10:59)
[2020-12-16] MEDS ORDERED: POTASSIUM CHLORIDE 20 MEQ TAB.PRT.SR PO ONE (11:00)
--- NOTE | 2020-12-16 11:05 | NUR ---
CM note: faxed referral package attn Alonzo/Demetrio sup. fax# , tel #[phone]. Addendum: 12/16/20 at 1255 by Seema Goldberg RN Per Alonzo, the pt is medically cleared for accepting. The transfer is pending insurance clearance. He will be calling nursing unit if had bed after 1630. Alonzo [phone] demetrio sup. -- DC package placed in [facility]. -- BRANDI Cintron made aware.
--- NOTE | 2020-12-16 11:30 | NUR ---
POTASSIUM REPLACEMENT PATIENT VERBALIZED UNDERSTANDING OF NEED TO TAKE ORAL K+ REPLACEMENTS. TOOK MEDS WELL.
[2020-12-16 12:18] VITALS: BP_SYST 112
--- NOTE | 2020-12-16 14:30 | NUR ---
ROUNDS NO THOUGHTS OF HARMING SELF OR OTHERS AT THIS TIME, ALTHOUGH VERBALIZING FRUSTRATIONS WITH FAMILY/DAUGHTER. WAITING TO BE TRANSFERRED TO A PSYCH FACILITY.
[2020-12-16 16:19] VITALS: BP_SYST 124
--- NOTE | 2020-12-16 17:01 | NUR ---
TERA, ALMOND PASTE MIXER OF [facility] NOTIFIED THAT PT IS GOING TO [facility] ([facility] [address] [place] [address] GOING TO [address], DR WU IS THE [employer] AND SOCIAL MEDIA MARKETER IS DR Renee ADKINS. [facility] TEL # [phone] WILL TILE MOLDER HAND AT [address].
[2020-12-16 18:41] VITALS: BP_SYST 135
--- NOTE | 2020-12-16 19:47 | NUR ---
TRANSFER PT Report given to Lincoln at [facility]. Transfer packet with Transfer Orders and Medication Reconciliation form given to EMT with report. Exit care provided. [facility] ID band removed, replaced with ID band with pt's name and . IV catheter removed, intact and dressing applied, no active bleeding. All belongings sent with patient. Patient left floor via gurney escorted by EMT in no distress.
--- NOTE | 2020-12-17 09:04 | NUR ---
PHYSICAL THERAPY CO-SIGN The Physical Therapy Progress Notes documented by Smokehouse Worker have been reviewed. Reviewed/Co-Signed by: Randal Nicole Documentation Done by: PONCHO PATIÑO PTA Addendum: 12/17/20 at 0904 by Randal Nicole PT Amended: Links added.
--- NOTE | 2020-12-19 08:44 | NUR ---
Disposition 02
== END 2020-12-16 19:45 | DRG 871 ==
LOC: SED 17:16 → SIC 18:51 → STU 12-12 14:33 → SMU 12-13 22:23
PROVIDERS: ADMIT Preventive Medicine Preventive Medicine/Occupational Environmental Medicine; ATTEND Preventive Medicine Preventive Medicine/Occupational Environmental Medicine
PROC: 0BH17EZ Insertion of Endotracheal Airway into Trachea, Via Natural or Artificial Opening (ICD-10-PCS; principal; 2020-12-10)
PROC: 5A1945Z Respiratory Ventilation, 24-96 Consecutive Hours (ICD-10-PCS; 2020-12-10)
DX: A41.9 Sepsis, unspecified organism (principal); J69.0 Pneumonitis due to inhalation of food and vomit; J96.21 Acute and chronic respiratory failure with hypoxia; I21.A1 Myocardial infarction type 2; F33.2 Major depressive disorder, recurrent severe without psychotic features; Z99.11 Dependence on respirator [ventilator] status; T42.4X2A Poisoning by benzodiazepines, intentional self-harm, initial encounter; T46.4X2A Poisoning by angiotensin-converting-enzyme inhibitors, intentional self-harm, initial encounter; E78.5 Hyperlipidemia, unspecified; Z20.822 Contact with and (suspected) exposure to COVID-19; I95.9 Hypotension, unspecified; D64.9 Anemia, unspecified; E87.6 Hypokalemia; R73.9 Hyperglycemia, unspecified; E83.51 Hypocalcemia; I11.9 Hypertensive heart disease without heart failure; E83.41 Hypermagnesemia; E83.52 Hypercalcemia; E88.09 Other disorders of plasma-protein metabolism, not elsewhere classified; Z79.899 Other long term (current) drug therapy; Y92.89 Other specified places as the place of occurrence of the external cause; Z91.5 Personal history of self-harm
CPT/HCPCS: 36415; 36600; 70450-TC; 71045; 76376; 80048; 80053; 80307; 81000; 82803-TC; 83605; 83735; 83880; 84100; 84484; 85025; 85651-TC; 86140; 87040-TC; 87070-TC; 87081; 87205-TC; 92610-GN; 93005; 93306; 94002; 94003; 94640; 94760; 96361; 96374; 96375; 97116-GP; 97530-GP; 99284; 99291; C9113; G0378; G0480; G0481; G0482; J0610; J2060; J2543; J3010; J3475; J3480; J7050

== ENCOUNTER 2021-01-07 14:53 | Emergency (ER) | payer BC, SELFPAY ==
[~2021-01-07] VITALS: Ht 157.5 cm; Wt 65.8 kg
[~2021-01-07 14:53] MED LIST: ATOR10TA68 PO; ESCI20TA PO; LEVO500T89 PO; LORA-258 PO; LURA20TA PO; PRO10 PO
[2021-01-07 15:00] VITALS: BP_SYST 127
--- NOTE | 2021-01-07 17:00 | NUR ---
Spoke w/ patient's . He is asking for resources to help him care for his because she is very anxious and restless during the day. I suggested he f/u with his PCP and her Psychiatrist. He was given resources for caregivers and memory care facilities for help to care for his .
--- NOTE | 2021-01-07 19:00 | NUR ---
CALLED PT NAME IN THE WR.NO RESPONSE.
--- NOTE | 2021-01-07 19:05 | NUR ---
CALLED PT NAME IN THE WR.NO RESPONSE.
--- NOTE | 2021-01-07 19:10 | NUR ---
CALLED PT NAME IN THE WR.NO RESPONSE.
== END 2021-01-07 19:10 | disposition left against medical advice (07) ==
LOC: SED 14:53
DX: F41.9 Anxiety disorder, unspecified (principal); Z53.21 Procedure and treatment not carried out due to patient leaving prior to being seen by health care provider